=== PATIENT | female | born 1980 | race Caucasian/White ===

== ENCOUNTER → 2017-10-29 | Day surgery (SDC) | payer OTHER ==
[~2017-10-29] VITALS: Ht 170.2 cm; Wt 74.8 kg
[2017-10-29 11:52] LABS: ABSOLUTE BASOPHIL COUNT 0 /CUMM (0.0-0.2); ABSOLUTE EOSINOPHIL COUNT 0 /CUMM (0.0-0.7); ABSOLUTE LYMPH COUNT 1.6 /CUMM (1.2-3.4); ABSOLUTE MONOCYTE COUNT 0.6 /CUMM (0.10-0.60); BASOPHIL % 0.2 % (0.0-2.0); EOSINOPHIL % 0.3 % (0-5); GRANULOCYTE % 78.3 % (42.2-75.2); HEMATOCRIT 37.1 % (37-47); MEAN CORPUSCULAR HGB 29.5 PG (27.0-31.0); MEAN CORPUSCULAR HGB CONC 34.3 G/DL (33.0-37.0); MEAN CORPUSCULAR VOLUME 85.8 FL (81.0-99.0); MEAN PLATELET VOLUME 7.9 FL (7.4-10.4); PLATELET COUNT 265 /CUMM (130-400); RBC DISTRIBUTION WIDTH 12.5 % (11.5-14.5); RED BLOOD CELL CT 4.32 /CUMM (4.20-5.40); WHITE BLOOD CELL COUNT 10.3 /CUMM (4.8-10.8)
--- NOTE | 2017-10-29 14:50 | Operative Report ---
Operative/Inv Procedure Report Surgery Date: 10/29/17 Name of Procedure: Suction dilation and curettage Pre-Operative Diagnosis: Undesired Post-Operative Diagnosis: Same Estimated Blood Loss: less than 50ml Surgeon/Paper Inserter: Jazmin Banuelos MD Anesthesia: moderate sedation, block Specimens: Products of conception Complications: None Condition: Stable Operative/Procedure Note Note: The patient was taken to the operating room and placed in dorsal supine position. Anesthesia was obtained without difficulty. She was then placed in dorsal lithotomy position and prepped and draped in the usual sterile fashion. A sterile speculum was placed in the patient's vagina. A single-tooth tenaculum was applied to the anterior lip of the cervix. 10 cc of 1% lidocaine were then used for paracervical block. The cervix was serially dilated to accommodate a 9 mm suction curette. Suction curette was inserted to the fundus, attached to the suction tubing and the suction device was activated to clear the uterus of products of conception. 2 passes with the suction curette were performed. Gentle sharp curettage was then performed and a gritty texture was noted in all 4 quadrants. The suction curette was then reinserted to clear the uterus of remaining clots and debris. All instruments were then removed from the patient' s vagina. Excellent hemostasis was noted. All counts were reported to be correct 2. The patient was taken to the recovery room in stable condition. A moderate amount of products of conception were sent to pathology. Findings: Moderate amount of products of conception Discharge Disposition: Same Day Admissions
== END ==
LOC: STS 02:12
PROVIDERS: Obstetrics & Gynecology
DX: Z33.2 Encounter for elective termination of pregnancy (principal)
CPT/HCPCS: 36415; J2250; J2790